=== PATIENT | male | born 1945 | race Caucasian/White ===

== ENCOUNTER 2022-11-07 12:20 | Emergency (ER) | payer BC ==
[~2022-11-07] VITALS: Ht 170.2 cm; Wt 64.9 kg
[2022-11-07 12:58] VITALS: O2SAT 100
[2022-11-07] MEDS ORDERED: HYDROCODONE/ACETAMINOPHEN 5/325MG TABLET PO ONE (16:00)
[2022-11-07] MEDS ORDERED: LIDOCAINE 5% PATCH TOP SCH (16:00)
[2022-11-07] MEDS ORDERED: LIDO700A30 TP (17:00)
[2022-11-07 17:10] VITALS: BP 136/74; PULSE 74; RESP 16; TEMP 98.5
== END 2022-11-07 17:11 | disposition home or self-care (01) ==
LOC: ER 12:55
DX: M54.2 Cervicalgia (principal); R51.9 Headache, unspecified
CPT/HCPCS: 99282